=== PATIENT | female | born 1935 | race Caucasian/White ===

== ENCOUNTER 2017-12-27 07:54 | Day surgery (SDC) | payer MEDICARE ==
[2017-12-26 08:19] VITALS: BMI 29.2
[~2017-12-27 07:54] MED LIST: Cyclopentolate 1% Opth Drop 2 ML BOT FS SCH; Fluorouracil 100 MG, Enoxaparin Sodium 25 MG, EPINEPHrine 0.3 MG in Ophthalmic Irrigati... IVPB SCH; Phenylephrine 2.5% Ophth Soln 5 ML BOT FS SCH
[2017-12-27] MEDS ORDERED: Cyclopentolate 1% Opth Drop 2 ML BOT ONE (08:14)
[2017-12-27] MEDS ORDERED: Phenylephrine 2.5% Ophth Soln 5 ML BOT ONE (08:14)
[2017-12-27] MEDS ORDERED: PROPOFOL 20 ML ONE (09:11)
[2017-12-27] MEDS ORDERED: Midazolam HCl 2 mg/2 ml Vial ONE (09:11)
[2017-12-27] MEDS ORDERED: Lidocaine 2% 10 ML INJ ONE (09:11)
[2017-12-27] MEDS ORDERED: Fentanyl 100 MCG/2 ML VIAL ONE (09:11)
[2017-12-27] MEDS ORDERED: Lidocaine 1% PF 5 ML VIAL ONE (09:29)
[2017-12-27] MEDS ORDERED: PROPOFOL 200 MG/20 ML VIAL ONE (09:29)
--- NOTE | 2017-12-27 14:54 | OP ---
DATE OF PROCEDURE: 12/27/2017 PREOPERATIVE DIAGNOSIS: Macular hole, left eye. POSTOPERATIVE DIAGNOSIS: Macular hole, left eye. PROCEDURE: Pars plana vitrectomy, internal limiting membrane peel, right eye. SURGEON: Milton Branch M.D. ANESTHESIA: Local with monitored anesthesia care. COMPLICATIONS: None. PROCEDURE IN DETAIL: The patient was identified in the preoperative holding area. Appropriate infor med consent for the planned surgical procedure on the right eye had been obtained. The patient was t ransported to the operative suite. Appropriate cardiopulmonary monitoring established. Local anesth esia was obtained using retrobulbar and modified Van Lint lid block using 50/50 mixture of 4% lidocai ne and 0.75% bupivacaine. The patient was prepped and draped in the usual sterile manner for ophthal flor surgery on the right eye. Lid speculum was placed in the right eye. The 25-gauge trocars were p laced in conjunctiva and sclera supratemporally, inferotemporally and supranasally. Infusion line wa s placed inferotemporally. Light pipe and vitreous cutter were inserted into the eye. Core vitrecto my was performed. Posterior hyaloid face was elevated using vacuum suction and peeled into the retin al periphery. Posterior hyaloid face was very adherent and sticky. Indocyanine green dye was infuse d in the posterior pole x1, identifying the epiretinal membrane and the internal limiting membrane. The epiretinal membrane was elevated using membrane scraper and peeled across the macula along with t he internal limiting membrane. Indirect ophthalmoscopy was used to examine the retina 360 degrees. No holes, breaks or tears were identified. A 28% sulfur hexafluoride gas was infused into the eye. Trocars were removed. Eye was noted to retain pressure well. Retrobulbar Kenalog and subconjunctiva l Ancef were placed. Atropine and antibiotic ointment were placed and the eye was patched and shield ed. The patient was taken to the postoperative recovery unit in good condition having suffered no im mediate perioperative complications. The patient was instructed to keep patch and shield on, avoid l ifting or bending, avoid flat on back positioning, and follow up in the morning with Dr. Branch.
== END 2017-12-27 11:33 | disposition home or self-care (01) ==
LOC: SDC 07:54
PROVIDERS: ATTEND Ophthalmology Retina Specialist
PROC: 08T43ZZ Resection of Right Vitreous, Percutaneous Approach (ICD-10-PCS; principal; 2017-12-27)
PROC: 08NE3ZZ Release Right Retina, Percutaneous Approach (ICD-10-PCS; 2017-12-27)
PROC: 3E0C3GC Introduction of Other Therapeutic Substance into Eye, Percutaneous Approach (ICD-10-PCS; 2017-12-27)
DX: H35.341 Macular cyst, hole, or pseudohole, right eye (principal); I10 Essential (primary) hypertension; E78.5 Hyperlipidemia, unspecified; J45.909 Unspecified asthma, uncomplicated; D64.9 Anemia, unspecified; E11.9 Type 2 diabetes mellitus without complications; M19.90 Unspecified osteoarthritis, unspecified site; F32.9 Major depressive disorder, single episode, unspecified; Z88.0 Allergy status to penicillin; Z91.041 Radiographic dye allergy status; Z87.440 Personal history of urinary (tract) infections
CPT/HCPCS: 36416; 67025; J0171; J1650; J2001; J2250; J2704; J3010; J9190